=== PATIENT | male | born 1950 | race Caucasian/White ===

== ENCOUNTER 2019-04-20 19:53 | Inpatient (IN) | payer MEDICARE ==
[~2019-04-20] VITALS: Ht 172.7 cm; Wt 107.5 kg
[~2019-04-20 19:53] MED LIST: CIPR500T3 PO; FENO134C PO; HYDR-3713 PO; METF500T13 PO; METO1TAB7 PO; PLAV1TAB2 PO; PRAV40TA2 PO
[2019-04-20 22:56] VITALS: BP 136/79
[2019-04-20] MEDS ORDERED: CLOP75TA2 PO (23:38)
[2019-04-20] MEDS ORDERED: METO1TAB7 PO (23:38)
[2019-04-20] MEDS ORDERED: PRAV40TA2 PO (23:38)
[2019-04-20] MEDS ORDERED: FENO135C6 PO (23:38)
[2019-04-20] MEDS ORDERED: METF-839 PO (23:38)
[2019-04-20] MEDS ORDERED: NITR4TASL SL (23:38)
[2019-04-20] MEDS ORDERED: ALFU10TA3 PO (23:38)
[2019-04-21] MEDS ORDERED: ASPI-161 PO (00:11)
[2019-04-21] MEDS ORDERED: ACETAMINOPHEN TAB 650MG DOSE (2X325MG) PO PRN (00:45)
[2019-04-21] MEDS ORDERED: GLUCAGON FOR INJ 1 MG VIAL (J1610) SC PRN (00:45)
[2019-04-21] MEDS ORDERED: GLUCOSE 4 GM CHEW TABLET PO PRN (00:45)
[2019-04-21] MEDS ORDERED: DEXTROSE 50% 50 ML SYRINGE IV PRN (00:45)
[2019-04-21] MEDS: NS 1,000 ML IV SCH ×2 (00:47→23:29)
[2019-04-21 00:56] LABS: BASO # 0.1 10^3/uL (0.0-0.2); BASO % 0.4 % (0.0-1.0); EOS # 0.2 10^3/uL (0.0-0.50); EOS % 1.2 % (0.0-3.0); HEMATOCRIT 40.6 % (42.0-52.0); HEMOGLOBIN 13.7 g/dl (13.5-17.5); LYMPH # 1.9 10^3/uL (1.5-4.5); LYMPH % 14.1 % (24.0-44.0); MEAN CORPUSCULAR HEMOGLOBIN 31.3 pg (27.0-33.0); MEAN CORPUSCULAR HGB CONC 33.7 g/dl (32.0-36.5); MEAN CORPUSCULAR VOLUME 92.7 fl (80.0-96.0); MONO # 0.9 10^3/uL (0.0-0.8); NEUTROPHILS # 10.2 10^3/uL (1.8-7.7); NEUTROPHILS % 76.8 % (36.0-66.0); PLATELET COUNT, AUTOMATED 203 10^3/uL (150-450); RED BLOOD COUNT 4.38 10^6/uL (4.30-6.10); WHITE BLOOD COUNT 13.2 10^3/uL (4.0-10.0)
[2019-04-21] MEDS: HumaLOG INSULIN (NovoLOG) PER UNIT SC SCH ×5 (01:10→20:59)
[2019-04-21 01:12] LABS: ALBUMIN 3.2 GM/DL (3.2-5.2); ALT/SGPT 50 U/L (12-78); BILIRUBIN,TOTAL 0.6 MG/DL (0.2-1.0); BLOOD UREA NITROGEN 22 MG/DL (7-18); CARBON DIOXIDE LEVEL 24 MEQ/L (21-32); CHLORIDE LEVEL 107 MEQ/L (98-107); CREATININE FOR GFR 1.23 MG/DL (0.70-1.30); GLOMERULAR FILTRATION RATE > 60.0 (>42); GLUCOSE, FASTING 161 MG/DL (70-100); POTASSIUM SERUM 3.2 MEQ/L (3.5-5.1); SODIUM LEVEL 140 MEQ/L (136-145); TOTAL PROTEIN 7.2 GM/DL (6.4-8.2)
--- NOTE | 2019-04-21 01:34 | HPEPDOC ---
General Date of Admission Apr 20, 2019 at 22:57 Date of Service: Apr 21, 2019 Attending Physician: FAHAD GAO MD Chief Complaint The patient is a 69-year-old male admitted with a reason for visit of Hematuria,Pyelonephritis,Lower Gi Bleed. Source: Patient, RN/MD Exam Limitations: No limitations Timing/Duration: Day(s) Severity: Moderate History of Present Illness Patient is a 69-year-old male, past medical history significant for urethral stones status post lithotripsy, type 2 diabetes mellitus, nicotine dependence, presenting to [facility] on account of bloody diarrhea and dysuria for 3 days. Patient described the abdominal pain as colicky, sharp, constant, located to lower abdomen and associated with diarrhea. Patient denied any chills, fever, chest pain, shortness of breath. At that facility. He had a CT abdomen and pelvis without contrast which showed 5mm stones in distal ureter just above the UVJ and a 4mm stone into the bladder. A distended bladder, calculated to 878ml volume, heavily calcified prostate with old inflammatory disease, presacral space fluid and edema, left hydroureter without stones in ureter or collecting system. Patient received one dose Cipro and ceftriaxone in the ED at [place]. Specialist input was sought with urology, who felt the patient might have GI bleed. In addition to prostate abscess and recommended transfer to this facility for upper endoscopy, colonoscopy, GI consult and urology consult for cystoscopy. Home Medications Scheduled Alfuzosin HCl (Alfuzosin HCl ER) 10 Mg Tab.er.24h, 10 MG PO DAILY, (Reported) Aspirin (Aspirin EC) 81 Mg Tablet.dr, 81 MG PO DAILY, (Reported) LUNCHTIME Clopidogrel Bisulfate (Clopidogrel) 75 Mg Tablet, 75 MG PO DAILY, (Reported) Fenofibric Acid (Choline) (Fenofibric Acid) 135 Mg Capsule.dr, 135 MG PO DAILY, (Reported) Metformin HCl (Metformin HCl) 500 Mg Tablet, 1,000 MG PO BID, (Reported) Metoprolol Succinate (Metoprolol Succinate) 50 Mg Tab.er.24h, 25 MG PO QHS, (Reported) Pravastatin Sodium (Pravastatin Sodium) 40 Mg Tablet, 40 MG PO QHS, (Reported) Scheduled PRN Nitroglycerin (Nitrostat) 0.4 Mg Tab.subl, 0.4 MG SL NITRO PRN for CHEST PAIN, (Reported) Allergies Coded Allergies: No Known Allergies (Unverified , 03/07/16) Past Medical History Medical History Type 2 diabetes mellitus Obesity Hypertension Hyperlipidemia CAD status post stenting CVA Nicotine dependence Nephrolithiasis Surgical History Lithotripsy Family History Father: Hyperlipidemia, cancer Mother: Glaucoma Social History Smokes 2 packs of cigarettes per week, denies alcohol or polysubstance abuse A-FIB/CHADSVASC A-FIB History Current/History of A-Fib/PAF?: No Current PO Anticoag Therapy: No Review of Systems Other systems A 10 point pertinent review of systems was completed, negative except as stated in the history of presenting illness. Physical Examination Telemetry: Positive: Sinus (ST-T wave changes suggestive of underlying ischemia) Other physical findings GENERAL: NAD SKIN : Warm, dry intact HEENT: Atraumatic, normocephalic, PERRL, moist mucous membrane CARDIOVASCULAR: Regular rate and rhythm, S1S2, no JVD, no edema, distal pulses + and palpable RESP: CTAB, no accessory muscle use noted ABDOMEN: BS+ non distended non tender MS: no joint deformities NEURO: Alert and oriented x 3, CN2-12 grossly intact PSYCH: no anxiety or agitation, appropriate mood and affect. Vital Signs .. Laboratory Data Labs 24H Laboratory Tests 2 04/21/19 00:39: CBC/BMP Assessment/Plan Acute Pyelonephritis -continue ceftriaxone -will need to consult urology in the am for obstructing stone -NS at 85cc/hour -UA with culture for targeted therapy -follow findings and adjust abx therapy as indicated Prostatic Abscess -possibly seen on CT imaging -Urology will need to be consulted in the am Acute GI bleed -With patient reporting 5-6 bowel movements with diarrhea in 1 day -GI panel now -Patient was treated with Cipro at another facility -We'll continue Cipro and add metronidazole -Will need to consult gastroenterology for evaluation and input in the am -Keep on clear liquid diet at this time -Continuous IV fluids at 80 mL per hour T2DM -Finger stick checks prior to meals and at bedtime -Coverage per sliding scale protocol -Hold metformin during hospitalization Hypertension -Essential, benign -Blood pressure monitoring with target systolic blood pressure less than 140 Nicotine Dependence -has been counselled Obesity -BMI36 -calorie controlled diet when diet is resumed DVT prophylaxis -Antiembolic stockings Plan / VTE VTE Prophylaxis Ordered?: Yes OTUBELU,ADAORA C. GASOLINE TRACTOR OPERATOR Apr 21, 2019 01:34
[2019-04-21 02:00] VITALS: BP 111/62
[2019-04-21] MEDS: metroNIDAZOLE 500 MG in IV 1 EA IV SCH ×3 (03:00→18:44)
[2019-04-21] MEDS: METOPROLOL SUCC (TopROL XL) 50MG **XL** TAB PO SCH ×2 (03:38→21:03)
[2019-04-21] MEDS: CIPROFLOXACIN 400 MG in IV 1 EA IV SCH ×2 (05:30→17:44)
[2019-04-21 06:00] VITALS: BP 114/55
[2019-04-21] MEDS: FENOFIBRATE 145 MG TAB (TRICOR) PO SCH (08:49)
[2019-04-21 10:00] VITALS: BP 117/71
--- NOTE | 2019-04-21 12:28 | IPNPDOC ---
Text Note Date of Service The patient was seen on 04/21/19. NOTE S: Patient transferred from [facility] because of hematochezia, prostate abscess, kidney stones and hydroureter. Patient states on 04/14 had problems urinating. Progressively worsened and on tuesday 04/17 patient had dysuria, oliguria. Yesterday he developed hematochezia, diarrhea stools and went to [facility]. had CT ABD/PEL with contrast and transferred to [facility] for GI and consultation. Patient states still having hematochezia (1-2 bloody and sometimes maroon diarrhea stools today). no nausea, no fever, no abdomen pain. Still with back pain, dysuria and oliguria O: Vitals as below General: pleasant, obese, NAD, AAOx3 HRRR LCTA no W/R/R, no CVA tenderness Abdomen: soft NT ND NABS A/P: 1) Acute Pyelonephritis with hydroureter - started on ceftriaxone, BC/UC pending from [facility] . repeat UA and culture here. IVF. Will change IV antibiotics to levaquin/flagyl to cover GI and sources 2) Abscess of prostate - consult urology and case discussed. NPO until seen by urology; blood and urine culture pending. continue levaquin/flagyl 3) Acute GI bleed without anemia - probable lower - painless. Consult GI -Dr Dela Cruz (may need outpatient EGD/Colonoscopy). IVF. serial H/H (stable). PPI, continue cipro/flagyl. no mention of diveritculitis on available reports (unable to visualize films). stool studies ordered 4) Diabetes - not on terminal make up operator insulin, without hyperglycemia/hypoglycemia. hold metformen [address] (04/20/19). SSI. ACHS accuchecks 5) HTN benign essential - continue home regimen/metoprolol; hold plavix and ASA due to bleeding 6) tobacco dependence - declines nicotene patch. smokes 2 pack/week 7) Obesity with BMI 36 CODE STATUS: FULL DVT PROPHYLAXIS: SCD/NBA VS,Fishbone, I+O VS, Fishbone, I+O Laboratory Tests 04/21/19 00:39 Red Blood Count 4.38, Mean Corpuscular Volume 92.7, Mean Corpuscular Hemoglobin 31.3, Mean Corpuscular Hemoglobin Concent 33.7, Red Cell Distribution Width 12.6, Neutrophils (%) (Auto) 76.8 H, Lymphocytes (%) (Auto) 14.1 L, Monocytes (%) (Auto) 7.0 H, Eosinophils (%) (Auto) 1.2, Basophils (%) (Auto) 0.4, Neutrophils # (Auto) 10.2 H, Lymphocytes # (Auto) 1.9, Monocytes # (Auto) 0.9 H, Eosinophils # (Auto) 0.2, Basophils # (Auto) 0.1, Calcium Level 9.0, Aspartate Amino Transf (AST/SGOT) 48 H, Alanine Aminotransferase (ALT/SGPT) 50, Alkaline Phosphatase 47, Total Bilirubin 0.6, Total Protein 7.2, Albumin 3.2 Vital Signs Date Time Temp Pulse Resp B/P (MAP) Pulse Ox O2 Delivery O2 Flow Rate FiO2 04/21/19 10:00 98.5 67 16 117/71 (18) 94 I&O- Last 24 Hours up to 6 AM 04/21/19 06:00 Intake Total 750 ml Output Total 0 ml Balance 750 ml SIMIN HOLMAN DO Apr 21, 2019 11:22
[2019-04-21] MEDS: KCL 10MEQ/100ML SWI (KRUN) 10 MEQ in IV 1 EA IV SCH ×3 (12:39→16:15)
[2019-04-21] MEDS: PANTOPRAZOLE 40MG TAB (PROTONIX) PO SCH (12:39)
[2019-04-21 14:00] VITALS: BP 121/75
[2019-04-21] MEDS ORDERED: cefTRIAXone SOD 2 GM in D5W MINI-BAG PLUS 50 ML IV SCH (14:00)
--- NOTE | 2019-04-21 17:07 | SMCUROLCON ---
Urology Consultation General Date of Consultation 04/21/19 Reason For Consultation This patient is seen for Hematuria,Pyelonephritis,Lower Gi Bleed. History of Present Illness This patient is a 69-year-old male who was admitted yesterday to the [facility]. He reports that his current medical symptoms started approximately 1 week ago. He reports that the symptoms started with some very mild dysuria. He reports that over the following days that dysuria became a bit more intense in that also started having bloody diarrhea. He reports that over the following days his urine output decreased but that he was not really having any obstructive urinary symptoms. He had worsening bloody stools and eventually presented to [facility]. A plain CT scan was done there. Although we do not have any formal interpretation of this study it has been reported that it showed left ureteral stones, left ureteral dilation, a bladder stone, and a prostate abscess. The patient does have a CD of the images. The patient reports that he has not had any abdominal or flank pain any time recently. He also reports that he underwent a digital rectal exam yesterday and that he had no abnormal or surprising tenderness in his rectum or prostate area. He reports that his dysuria has been less bothersome in the last day or two although he has not been urinating very much. He does have a history of urolithiasis and underwent at least one endoscopic stone procedure in the past. He reports that this was sometime ago and that he does have a urologist that he follows with as an outpatient. He denies any other genitourinary complaints at this time. Past Medical History Medical History Type 2 diabetes mellitus, Obesity, Hypertension, Hyperlipidemia, CAD status post stenting, CVA, h/o urolithiasis Surgical Hstory h/o endoscopic stone surgery Family History Significant Family History: No pertinent family hx Social History * Smoker: current smoker Alcohol: Denies Drugs: denies Medications Current Medications Current Medications Acetaminophen (Tylenol Tab) 650 mg Q4H PRN PO PAIN OR FEVER; Start 04/21/19 at 00:45 Ceftriaxone Sodium 2 gm/ Dextrose 50 ml @ 100 mls/hr Q24H IV ; Start 04/21/19 at 14:00; Stop 04/21/19 at 14:00; Status DC Ciprofloxacin 400 mg/IV Miscellaneous Supplies 200 ml @ 200 mls/hr Q12H IV Last administered on 04/21/19at 05:30; Start 04/21/19 at 06:00 Dextrose (Dextrose 50%) 25 ml ASDIRECTED PRN IV SEE LABEL COMMENTS; Start 04/21/19 at 00:45 Fenofibrate (Tricor) 145 mg DAILY PO Last administered on 04/21/19at 08:49; Start 04/21/19 at 09:00 Glucagon (Glucagon) 1 mg ASDIRECTED PRN SC SEE LABEL COMMENTS; Start 04/21/19 at 00:45 Glucose (Glucose) 16 GM ASDIRECTED PRN PO SEE LABEL COMMENTS; Start 04/21/19 at 00:45 Home Med (Med Rec Complete!) ASDIRECTED XX ; Start 04/21/19 at 00:15; Stop 04/21/19 at 00:15; Status DC Insulin Human Lispro (HumaLOG INSULIN) SEE PROTOCOL TABLE AC SC ; Start 04/21/19 at 07:30 Insulin Human Lispro (HumaLOG INSULIN) SEE PROTOCOL TABLE QHS SC ; Start 04/20/19 at 21:00 Metoprolol Succinate (TopROL XL) 25 mg QHS PO Last administered on 04/21/19at 03:38; Start 04/20/19 at 21:00 Metronidazole 500 mg/IV Miscellaneous Supplies 100 ml @ 100 mls/hr Q8H IV Last administered on 04/21/19at 11:10; Start 04/21/19 at 03:00 Pantoprazole Sodium (Protonix) 40 mg DAILY PO Last administered on 04/21/19at 12:39; Start 04/21/19 at 09:00 Potassium Chloride 10 meq/ IV Miscellaneous Supplies 100 ml @ 100 mls/hr Q1H IV Last administered on 04/21/19at 16:15; Start 04/21/19 at 13:00; Stop 04/21/19 at 15:59; Status DC Pravastatin Sodium (Pravachol) 40 mg QHS PO ; Start 04/21/19 at 21:00 Sodium Chloride 1,000 ml @ 75 mls/hr [id number] IV Last administered on 04/21/19at 00:47; Start 04/21/19 at 00:30 Allergies Allergies: Coded Allergies: No Known Allergies (Unverified , 03/07/16) Review of Systems Gastrointestinal: Reports: Diarrhea, Hematochezia Genitourinary: Reports: Dysuria; Denies: Retention Physical Examination General Exam: Cooperative EYE EXAM: Conjunctiva & lids normal, EOMI ENT EXAM: Atraumatic, Nares Patent Neck Exam: Supple Chest Exam: Normal air movement Heart Exam: Rate Normal Abdomen Exam: Soft, Other (No CVAT); No: Tenderness Skin Exam: Nl turgor and temperature Neuro Exam: Normal Speech Psych Exam: Mental status NL, Mood NL Vital Signs/I&O Vital Signs Date Time Temp Pulse Resp B/P (MAP) Pulse Ox O2 Delivery O2 Flow Rate FiO2 04/21/19 14:00 97.9 68 17 121/75 (90) 94 I&O- Last 24 Hours up to 6 AM 04/21/19 06:00 Intake Total 750 ml Output Total 0 ml Balance 750 ml Laboratory Data 24H Labs Laboratory Tests 2 04/21/19 00:39: Immature Granulocyte % (Auto) 0.5, White Blood Count 13.2H, Red Blood Count 4.38, Hemoglobin 13.7, Hematocrit 40.6L, Mean Corpuscular Volume 92.7, Mean Corpuscular Hemoglobin 31.3, Mean Corpuscular Hemoglobin Concent 33.7, Red Cell Distribution Width 12.6, Platelet Count 203, Neutrophils (%) (Auto) 76.8H, Lymphocytes (%) (Auto) 14.1L, Monocytes (%) (Auto) 7.0H, Eosinophils (%) (Auto) 1.2, Basophils (%) (Auto) 0.4, Neutrophils # (Auto) 10.2H, Lymphocytes # (Auto) 1.9, Monocytes # (Auto) 0.9H, Eosinophils # (Auto) 0.2, Basophils # (Auto) 0.1, Nucleated Red Blood Cells % (auto) 0.0, Anion Gap 9, Glomerular Filtration Rate > 60.0, Blood Urea Nitrogen 22H, Creatinine 1.23, Sodium Level 140, Potassium Level 3.2L, Chloride Level 107, Carbon Dioxide Level 24, Calcium Level 9.0, Aspartate Amino Transf (AST/SGOT) 48H, Alanine Aminotransferase (ALT/SGPT) 50, Alkaline Phosphatase 47, Total Bilirubin 0.6, Total Protein 7.2, Albumin 3.2, Albumin/Globulin Ratio 0.80L 04/21/19 01:07: Bedside Glucose (Misc Panel) 157H 04/21/19 02:40: Urine Color YELLOW, Urine Appearance CLOUDYH, Urine pH 5.0, Urine Specific [place] 1.030, Urine Protein 1+H, Urine Glucose (UA) NEGATIVE, Urine Ketones NEGATIVE, Urine Blood 3+H, Urine Nitrite NEGATIVE, Urine Bilirubin NEGATIVE, Urine Urobilinogen 2.0H, Urine Leukocyte Esterase 3+H, Urine WBC (Auto) TNTCH, Urine RBC (Auto) 29H, Urine Hyaline Casts (Auto) 0, Urine Bacteria (Auto) NEGATIVE, Urine Squamous Epithelial Cells 0, Urine Transitional Epithelial Cells 1, Urine Sperm (Auto) 04/21/19 06:24: Bedside Glucose (Misc Panel) 144H 04/21/19 11:42: Bedside Glucose (Misc Panel) 119H CBC/BMP Laboratory Tests 04/21/19 00:39 Red Blood Count 4.38, Mean Corpuscular Volume 92.7, Mean Corpuscular Hemoglobin 31.3, Mean Corpuscular Hemoglobin Concent 33.7, Red Cell Distribution Width 12.6, Neutrophils (%) (Auto) 76.8 H, Lymphocytes (%) (Auto) 14.1 L, Monocytes (%) (Auto) 7.0 H, Eosinophils (%) (Auto) 1.2, Basophils (%) (Auto) 0.4, Neutrophils # (Auto) 10.2 H, Lymphocytes # (Auto) 1.9, Monocytes # (Auto) 0.9 H, Eosinophils # (Auto) 0.2, Basophils # (Auto) 0.1, Calcium Level 9.0, Aspartate Amino Transf (AST/SGOT) 48 H, Alanine Aminotransferase (ALT/SGPT) 50, Alkaline Phosphatase 47, Total Bilirubin 0.6, Total Protein 7.2, Albumin 3.2 Microbiology Microbiology 04/21/19 Blood Culture, Received Pending 04/21/19 Blood Culture, Received Pending 04/21/19 Gastrointestinal Tract Panel (PCR) - Final, Complete 04/21/19 Urine Culture, Received Pending Assessment Urinary tract infection, possible pyelonephritis; no evidence of any urolithiasis, hydronephrosis or hydroureter, or prostate abscess Plan The images on the CD were of a CT of the abdomen and pelvis without contrast that was performed about [address] [facility]. These images were reviewed and did not demonstrate any stones in either kidney or ureter, or any stones in the bladder. In addition there was no hydroureter or hydronephrosis on either side. Although there is bilateral soft tissue/fluid dense structures just superior and posterior to the prostate these likely represent a dilated seminal vesicles rather than a prostate abscess. The prostate itself appears significantly calcified but does not appear to have any abscesses. Further evidence against a prostate abscess is the fact that he had no tenderness on digital rectal exam yesterday. #1. Recommend ongoing antibiotic treatment for urinary tract infection, possible pyelonephritis. #2. Recommend submitting the CD from [facility] to the [facility] radiologist for internal interpretation. Please note the CD is in the inside pocket of the patient's chart. If [facility] radiology thinks that there is evidence of a prostate abscess then contact the urology service. #3 recommend that the patient continue regular follow-up with his normal urologist as an outpatient. RATNA DIAZ MD Apr 21, 2019 17:07
[2019-04-21 18:00] VITALS: BP 120/72
--- NOTE | 2019-04-21 19:01 | ECGEPIP ---
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 Left ventricular hypertrophy with repolarization abnormalities Small inferior Q waves; rule out prior injury. No prior tracing for comparison. Clincal correlation advised Electronically Signed on 04-21-2019 19:00:55 EDT by Thomas Clement
[2019-04-21] MEDS: PRAVASTATIN 20 MG TAB PO SCH (21:03)
[2019-04-21 22:00] VITALS: BP 160/76
[2019-04-22 02:00] VITALS: BP 123/72
[2019-04-22] MEDS: metroNIDAZOLE 500 MG in IV 1 EA IV SCH ×3 (02:42→19:27)
[2019-04-22] MEDS: NS 1,000 ML IV SCH ×2 (03:10→15:17)
[2019-04-22] MEDS: CIPROFLOXACIN 400 MG in IV 1 EA IV SCH ×2 (05:24→18:01)
[2019-04-22 06:00] VITALS: BP 125/67
[2019-04-22 06:52] LABS: HEMATOCRIT 38.6 % (42.0-52.0); HEMOGLOBIN 12.6 g/dl (13.5-17.5); MEAN CORPUSCULAR HEMOGLOBIN 30.7 pg (27.0-33.0); MEAN CORPUSCULAR HGB CONC 32.6 g/dl (32.0-36.5); MEAN CORPUSCULAR VOLUME 93.9 fl (80.0-96.0); PLATELET COUNT, AUTOMATED 194 10^3/uL (150-450); RED BLOOD COUNT 4.11 10^6/uL (4.30-6.10); WHITE BLOOD COUNT 8.3 10^3/uL (4.0-10.0)
[2019-04-22 07:17] LABS: ALBUMIN 2.8 GM/DL (3.2-5.2); ALT/SGPT 43 U/L (12-78); BILIRUBIN,TOTAL 0.4 MG/DL (0.2-1.0); BLOOD UREA NITROGEN 15 MG/DL (7-18); CALCIUM LEVEL 8.3 MG/DL (8.8-10.2); CARBON DIOXIDE LEVEL 24 MEQ/L (21-32); CHLORIDE LEVEL 111 MEQ/L (98-107); CREATININE FOR GFR 1.15 MG/DL (0.70-1.30); GLOMERULAR FILTRATION RATE > 60.0 (>42); GLUCOSE, FASTING 140 MG/DL (70-100); POTASSIUM SERUM 3.4 MEQ/L (3.5-5.1); SODIUM LEVEL 142 MEQ/L (136-145); TOTAL PROTEIN 6.2 GM/DL (6.4-8.2)
[2019-04-22] MEDS: HumaLOG INSULIN (NovoLOG) PER UNIT SC SCH ×4 (07:30→20:55)
[2019-04-22] MEDS: PANTOPRAZOLE 40MG TAB (PROTONIX) PO SCH (08:04)
[2019-04-22] MEDS: FENOFIBRATE 145 MG TAB (TRICOR) PO SCH (08:04)
[2019-04-22] MEDS ORDERED: POTASSIUM CHLORIDE 10 MEQ SR TABLET PO ONE (08:15)
[2019-04-22 10:00] VITALS: BP 118/77
[2019-04-22] MEDS ORDERED: GOLYTELY SOLN 4000 ML BTL PO ONE (11:30)
[2019-04-22 14:00] VITALS: BP 106/53
[2019-04-22] MEDS ORDERED: BISACODYL 5 MG TAB PO ONE (16:00)
--- NOTE | 2019-04-22 19:46 | CR.PDOC ---
General Date of Consultation: Apr 22, 2019 Referring Provider: SIMIN ENGEL DO Attending Physician: CHEPE GRIFFIN MD Consultation Primary physician/ hospitalist: Dr. Engel Reason for consult: Hematochezia HPI: 69 year old Male patient with PMH of HTN, DM-2, HLD, nephrolithiasis and S/P lithotripsy ( following with urologist), was admitted for hematochezia and dysuria for 3 days. GI consulted for hematochezia. Patient initially presented to [facility] for symptoms of acute onset bloody diarrhea and pain with urination for 3 days. Patient described the abdominal pain as colicky, sharp, constant, located in lower abdomen and associated with diarrheal bowel movements. Patient denied any chills, fever, chest pain, shortness of breath. Patient was referred to [facility] for specialist evaluation. Patient on examination at bedside reported still having blood in stools while in hospital without any abdominal pain except pain with micturition. Patient was evaluated by urology in [facility], and no acute intervention planned at this time. Pertinent negative GI symptoms: Patient denies fever, sick contacts, recent travel, nausea, vomiting, loss of appetite, early satiety or unintentional weight loss. No history of hematemesis, melena. OFF note: As per medical records -- At [facility], patient had a CT abdomen and pelvis without contrast which showed 5mm stones in distal ureter just above the UVJ and a 4mm stone into the bladder. A distended bladder, calculated to 878ml volume, heavily calcified prostate with old inflammatory disease, presacral space fluid and edema, left hydroureter without stones in ureter or collecting system. Patient received one dose Cipro and ceftriaxone in the ED at [place]. Review of Systems: GI: as stated above CVS: No chest pain, No palpitations, No leg swelling. 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 Skin: No rash : as above. ENT: No ear discharge/ pain, No dysphagia. Eyes: No photophobia. Jaundice Home medications: reviewed. Antithrombotic agents - no Medical h/o: As above. Surgical h/o: None on abdomen. Social h/o: Alcohol Denies , smoking 2 packs /week , IVDA/ drugs Denies . Family h/o of GI cancers - None Prior Endoscopies: None as per patient Prior GI evaluations: None in [facility]. Exam: Vitals: reviewed General: Alert and oriented x 3, not in distress HEENT: NO pallor, no icterus. Normal oropharynx, NO cervical lymph nodes. Chest: symmetric with bilateral clear air entry, CVS: S1, S2 heard, normal, no murmurs . Abdomen: non-distended, obese, soft, non-tender, no palpable masses, normal bowel sounds heard. Rectal exam: Patient refused / Deferred at this time in view of scheduled colonoscopy. Extremities: no pedal edema, pulses palpable. SEMICONDUCTOR PROCESSING TECHNICIAN: no focal motor or sensory deficits. Moves all extremities Skin: no rash. Labs: reviewed -- Stable H/H with slight drop from baseline. Impression: - Acute onset rectal bleeding, large amounts as per patient with lower abdominal pain ( which is likely related to his bladder stones), with no prior Colonoscopy -- DDx-- Diverticular bleeding vs AVMs vs Polyps vs Ischemic colitis vs hemorrhoids. Recommendations: - Patient educated about the test results, possible differential diagnoses and All questions answered. - Clear liquid diet until tomorrow 6 AM. - Avoid NSAIDs. - Will schedule for Colonoscopy tomorrow after bowel prep. - The procedure, indications, risks (bleeding, perforation, infection, hypotension, respiratory depression, allergy, need for endotracheal intubation, surgery, colostomy, cardiac arrest, even ), benefits, limitations (e.g., missing a lesion), and all other alternatives (including no intervention) were explained to the patient who understood and agreed for the procedure. - Golytely 4 liters to be completed by 6 AM tomorrow. - Dulcolax 20 mg at 4PM. - NPO after 6 AM tomorrow for the procedure. - Please follow procedure note for post procedure recommendations Plan of care discussed with patient and primary team. Patient verbalized understanding and agreed with the plan. Laboratory Data CBC/BMP Laboratory Tests 04/22/19 06:19 Red Blood Count 4.11 L, Mean Corpuscular Volume 93.9, Mean Corpuscular Hemoglobin 30.7, Mean Corpuscular Hemoglobin Concent 32.6, Red Cell Distribution Width 12.6, Calcium Level 8.3 L, Aspartate Amino Transf (AST/SGOT) 34, Alanine Aminotransferase (ALT/SGPT) 43, Alkaline Phosphatase 39 L, Total Bilirubin 0.4, Total Protein 6.2 L, Albumin 2.8 L 04/22/19 17:48 Allergies Coded Allergies: No Known Allergies (Unverified , 03/07/16) Home Medications Scheduled Alfuzosin HCl (Alfuzosin HCl ER) 10 Mg Tab.er.24h, 10 MG PO DAILY, (Reported) Aspirin (Aspirin EC) 81 Mg Tablet.dr, 81 MG PO DAILY, (Reported) LUNCHTIME Clopidogrel Bisulfate (Clopidogrel) 75 Mg Tablet, 75 MG PO DAILY, (Reported) Fenofibric Acid (Choline) (Fenofibric Acid) 135 Mg Capsule.dr, 135 MG PO DAILY, (Reported) Metformin HCl (Metformin HCl) 500 Mg Tablet, 1,000 MG PO BID, (Reported) Metoprolol Succinate (Metoprolol Succinate) 50 Mg Tab.er.24h, 25 MG PO QHS, (Reported) Pravastatin Sodium (Pravastatin Sodium) 40 Mg Tablet, 40 MG PO QHS, (Reported) Scheduled PRN Nitroglycerin (Nitrostat) 0.4 Mg Tab.subl, 0.4 MG SL NITRO PRN for CHEST PAIN, (Reported) CHEPE GRIFFIN MD Apr 22, 2019 19:17
--- NOTE | 2019-04-22 20:42 | IPNPDOC ---
Text Note Date of Service The patient was seen on 04/22/19. NOTE S: patient ambulating in room. states feels better. still with diarrhea and h as started medication for colonoscopy/EGD tomorrow. States no dysuria. O: Vitals as below HRRR LCTA Abdomen soft obese distended, NABS A/P: 1) Acute Pyelonephritis with hydroureter - started on ceftriaxone, BC/UC pending from [facility] . repeat UA and culture pending; IVF. Will change IV antibiotics to levaquin/flagyl to cover GI and sources; 2) Abscess of prostate - consult urology and case discussed THIS IS NOT ABSCESS and radiology CD sent for overread. 3) Acute GI bleed without anemia - probable lower - painless. plan for colonoscopy/EGD tomorrow 4) Diabetes - not on long term care social worker insulin, without hyperglycemia/hypoglycemia. hold metformen [address] (04/20/19). SSI. ACHS accuchecks 5) HTN benign essential - continue home regimen/metoprolol; hold plavix and ASA due to bleeding 6) tobacco dependence - declines nicotene patch. smokes 2 pack/week 7) Obesity with BMI 36 VS,Fishbone, I+O VS, Fishbone, I+O Laboratory Tests 04/21/19 17:51 04/22/19 06:19 Red Blood Count 4.11 L, Mean Corpuscular Volume 93.9, Mean Corpuscular Hemoglobin 30.7, Mean Corpuscular Hemoglobin Concent 32.6, Red Cell Distribution Width 12.6, Calcium Level 8.3 L, Aspartate Amino Transf (AST/SGOT) 34, Alanine Aminotransferase (ALT/SGPT) 43, Alkaline Phosphatase 39 L, Total Bilirubin 0.4, Total Protein 6.2 L, Albumin 2.8 L Vital Signs Date Time Temp Pulse Resp B/P (MAP) Pulse Ox O2 Delivery O2 Flow Rate FiO2 04/22/19 10:00 97.3 64 20 118/77 (91) 96 I&O- Last 24 Hours up to 6 AM 04/22/19 06:00 Intake Total 2010 ml Output Total 1400 ml Balance 610 ml SIMIN HOLMAN DO Apr 22, 2019 13:46
[2019-04-22] MEDS: PRAVASTATIN 20 MG TAB PO SCH (20:56)
[2019-04-22 20:57] VITALS: BP 131/79
[2019-04-22] MEDS: METOPROLOL SUCC (TopROL XL) 50MG **XL** TAB PO SCH (20:57)
[2019-04-22 22:00] VITALS: BP 131/79
[2019-04-23] MEDS: metroNIDAZOLE 500 MG in IV 1 EA IV SCH (02:46)
[2019-04-23] MEDS: CIPROFLOXACIN 400 MG in IV 1 EA IV SCH (05:05)
[2019-04-23 06:00] VITALS: BP 130/82
[2019-04-23] MEDS: NS 1,000 ML IV SCH (06:22)
[2019-04-23 06:56] LABS: BLOOD UREA NITROGEN 8 MG/DL (7-18); CALCIUM LEVEL 8.3 MG/DL (8.8-10.2); CARBON DIOXIDE LEVEL 24 MEQ/L (21-32); CHLORIDE LEVEL 113 MEQ/L (98-107); CREATININE FOR GFR 0.95 MG/DL (0.70-1.30); GLOMERULAR FILTRATION RATE > 60.0 (>42); GLUCOSE, FASTING 136 MG/DL (70-100); POTASSIUM SERUM 3.4 MEQ/L (3.5-5.1); SODIUM LEVEL 143 MEQ/L (136-145)
[2019-04-23] MEDS: HumaLOG INSULIN (NovoLOG) PER UNIT SC SCH ×2 (07:30→12:00)
[2019-04-23] MEDS: FENOFIBRATE 145 MG TAB (TRICOR) PO SCH (08:14)
[2019-04-23] MEDS: PANTOPRAZOLE 40MG TAB (PROTONIX) PO SCH (08:14)
[2019-04-23] MEDS ORDERED: LIDOCAINE 2% INJ 100 MG/5 ML SDV (FOR ANES.) As Ordered ONE (11:35)
[2019-04-23] MEDS ORDERED: propofoL 200 MG/20 ML VIAL As Ordered ONE (11:35)
[2019-04-23 11:58] VITALS: BP 125/82
--- NOTE | 2019-04-23 12:05 | ROOR ---
Patient Name: Perico Gabriel Procedure Date: 04/23/2019 10:28 AM Date of : 1950 Age: 69 Gender: Male Note Status: Finalized Procedure: Colonoscopy Indications: Hematochezia Providers: Jesus Dela Cruz MD Referring MD: Sarah Engel Do Requesting Provider: Medicines: Monitored Anesthesia Care Complications: No immediate complications. Procedure: Pre-Anesthesia Assessment: - Prior to the procedure, a History and Physical was performed, and patient medications and allergies were reviewed. The patient is competent. The risks and benefits of the procedure and the sedation options and risks were discussed with the patient. All questions were answered and informed consent was obtained. Patient identification and proposed procedure were verified by the physician, the nurse and the anesthesiologist in the procedure room. Mental Status Examination: alert and oriented. Airway Examination: normal oropharyngeal airway and neck mobility. Respiratory Examination: clear to auscultation. CV Examination: normal. Prophylactic Antibiotics: The patient does not require prophylactic antibiotics. Prior Anticoagulants: The patient has taken no previous anticoagulant or antiplatelet agents. ASA Grade Assessment: II - A patient with mild systemic disease. After reviewing the risks and benefits, the patient was deemed in satisfactory condition to undergo the procedure. The anesthesia plan was to use monitored anesthesia care (MAC). Immediately prior to administration of medications, the patient was re-assessed for adequacy to receive sedatives. The heart rate, respiratory rate, oxygen saturations, blood pressure, adequacy of pulmonary ventilation, and response to care were monitored throughout the procedure. The physical status of the patient was re-assessed after the procedure. The Colonoscope was introduced through the anus and advanced to the terminal ileum, with identification of the appendiceal orifice and IC valve. The colonoscopy was performed without difficulty. The patient tolerated the procedure well. The quality of the bowel preparation was good. The ileocecal valve, appendiceal orifice, and rectum were photographed. Scope insertion time was 3 minutes. Scope withdrawal time was 8 minutes. The total duration of the procedure was 12 minutes. Findings: The perianal and digital rectal examinations were normal. The terminal ileum appeared normal. Eight sessile polyps were found in the recto-sigmoid colon, transverse colon and ascending colon. The polyps were 6 to 10 mm in size. These polyps were removed with a cold snare. Resection and retrieval were complete. Verification of patient identification for the specimen was done by the physician and nurse using the patient's name, date and medical record number. Estimated blood loss was minimal. Multiple small and large-mouthed diverticula were found from sigmoid to ascending colon. There was no evidence of diverticular bleeding. Non-bleeding external and internal hemorrhoids were found during retroflexion. The hemorrhoids were medium-sized. Impression: - The examined portion of the ileum was normal. - Eight 6 to 10 mm polyps at the recto-sigmoid colon, in the transverse colon and in the ascending colon, removed with a cold snare. Resected and retrieved. - Moderate diverticulosis from sigmoid to ascending colon. There was no evidence of diverticular bleeding. - Non-bleeding external and internal hemorrhoids. Recommendation: - Patient has a contact number available for emergencies. The signs and symptoms of potential delayed complications were discussed with the patient. Return to normal activities tomorrow. Written discharge instructions were provided to the patient. - Resume previous diet. - Continue present medications. - Await pathology results. - Repeat colonoscopy in 3 years for surveillance based on pathology results. - Telephone GI clinic for pathology results in 2 weeks. - Return to GI clinic in 3 years. - Return to primary care physician. Attending Participation: I personally performed the entire procedure. Jesus Dela Cruz MD Jesus Dela Cruz MD 04/23/2019 12:05:34 PM Electronically signed by Jesus Dela Cruz MD Number of Addenda: 0 Note Initiated On: 04/23/2019 10:28 AM Estimated Blood Loss: Estimated blood loss was minimal.
[2019-04-23] MEDS ORDERED: LEVO500T3 PO (14:18)
--- NOTE | 2019-04-23 15:09 | DS.PDOC ---
Discharge Summary General Date of Admission Apr 21, 2019 at 00:48 Date of Discharge 04/23/19 Attending Physician: SIMIN HOLMAN DO Specialist/Consultants Involve PCP: Riaz Montejo NP; Consultants: Dr Carver (urology), Dr Dela Cruz (GI) Discharge Summary PROCEDURES PERFORMED DURING STAY: 04/23/19 Colonoscopy ADMITTING DIAGNOSES: Acute Pyelonephritis Prostatic Abscess Acute GI bleed T2DM Hypertension-Essential, benign Nicotine Dependence Obesity DISCHARGE DIAGNOSES: 1. Urinary tract infection, possible pyelonephritis; no evidence of any urolithiasis, hydronephrosis or hydroureter, or prostate abscess 2. Diverticulosis with colon polyps 3. Lower GI bleed without anemia due to hemorrhoids, colon polyps and diverticulosis 4. no evidence of any urolithiasis, hydronephrosis or hydroureter, or prostate abscess 5. Diabetes - not on long-term insulin, without hyperglycemia/hypoglcyemia 6. HTN benign essential 7 tobacco dependence 8 obesity wtih BMI 36 COMPLICATIONS/CHIEF COMPLAINT: Hematuria,Pyelonephritis,Lower Gi Bleed. HISTORY OF PRESENT ILLNESS: Patient is a 69-year-old male, past medical history significant for urethral stones status post lithotripsy, type 2 diabetes mellitus, nicotine dependence, presenting to [facility] on account of bloody diarrhea and dysuria for 3 days. Patient described the abdominal pain as colicky, sharp, constant, located to lower abdomen and associated with diarrhea. Patient denied any chills, fever, chest pain, shortness of breath. He was transferred from [facility] to [facility] because of prostate abscess, pylenephritis, kidney stone and GI bleed . See H&P for details. HOSPITAL COURSE: Patient admitted. started on flagyl and cipro antibiotics. GI and consulted. reviewed CT scan and no evidence of any urolithiasis, hydronephrosis or hydroureter, or prostate abscess. CD ROM sent to radiology for over read. His bloody diarrhea improved and he did not have any significant drop in hgb. GI performed colonoscopy and found hemorrhoids, diverticulosis (not itis) and colon polyps (biopsied). patient no longer had lower abdomen pain and tolerated regular diet. Prior to discharge, fax received from [facility] with possible Staph species in 1 bottle drawn on 04/20. Unclear if contaminent. Spoke with [place] [facility] and no identification available until tomorrow afternoon. Discussed with patient and staying in hospital for 24 hours until results available or going home and following up with phone call tomorrow. Discussed the risk/benefit of both options (including if blood culture is positive, then 14 days antibiotic treatment may be needed). Patient demonstrates good verbal understanding and prefers to be discharged home. DISCHARGE MEDICATIONS: Please see below. ALLERGIES: Please see below. PHYSICAL EXAMINATION ON DISCHARGE: VITAL SIGNS: Please see below. General: pleasant, NAD AAOX3 HRRR LCTA Abdomen soft obese NT ND NABS Ext: no edema LABORATORY DATA: Please see below. ACTIVITY: as tolerated DIET: carb consistent DISCHARGE PLAN: discharge home DISCHARGE INSTRUCTIONS: 1. follow up with GI in 2 weeks to review biopsy polyp reports 2. follow up with personal urologist in [place] in 1-2 weeks 3. follow up with PCP in 5-7 days ITEMS TO FOLLOWUP ON ON OUTPATIENT: 1. CD ROM over read from radiology pending 2. final BC report from [place] pending DISCHARGE CONDITION: stable and improved TIME SPENT ON DISCHARGE: 36 minutes. Vital Signs/I&Os Vital Signs Date Time Temp Pulse Resp B/P (MAP) Pulse Ox O2 Delivery O2 Flow Rate FiO2 04/23/19 11:58 78 16 125/82 (96) 94 04/23/19 11:58 98 I&O- Last 24 Hours up to 6 AM 04/23/19 06:00 Intake Total 4900 ml Output Total 850 ml Balance 4050 ml Laboratory Data Labs 24H Laboratory Tests 2 04/22/19 16:56: Bedside Glucose (Misc Panel) 128H 04/22/19 20:44: Bedside Glucose (Misc Panel) 92 04/23/19 06:23: Anion Gap 6L, Glomerular Filtration Rate > 60.0, Blood Urea Nitrogen 8, Creatinine 0.95, Sodium Level 143, Potassium Level 3.4L, Chloride Level 113H, Carbon Dioxide Level 24, Calcium Level 8.3L CBC/BMP Laboratory Tests 04/22/19 17:48 04/23/19 06:23 Calcium Level 8.3 L FSBS Laboratory Tests Test 04/22/19 16:56 04/22/19 20:44 Range/Units Bedside Glucose (Misc Panel) 128 92 83-110 MG/DL Microbiology Microbiology 04/21/19 Blood Culture - Preliminary, Resulted No Growth after 48 hours. All Specime... 04/21/19 Blood Culture - Preliminary, Resulted No Growth after 48 hours. All Specime... 04/21/19 Gastrointestinal Tract Panel (PCR) - Final, Complete 04/21/19 Urine Culture - Final, Complete Discharge Medications Scheduled Alfuzosin HCl (Alfuzosin HCl ER) 10 Mg Tab.er.24h, 10 MG PO DAILY, (Reported) Aspirin (Aspirin EC) 81 Mg Tablet.dr, 81 MG PO DAILY, (Reported) LUNCHTIME Clopidogrel Bisulfate (Clopidogrel) 75 Mg Tablet, 75 MG PO DAILY, (Reported) Fenofibric Acid (Choline) (Fenofibric Acid) 135 Mg Capsule.dr, 135 MG PO DAILY, (Reported) Levofloxacin (Levofloxacin) 500 Mg Tablet, 1 TAB PO DAILY Metformin HCl (Metformin HCl) 500 Mg Tablet, 1,000 MG PO BID, (Reported) Metoprolol Succinate (Metoprolol Succinate) 50 Mg Tab.er.24h, 25 MG PO QHS, ( Reported) Pravastatin Sodium (Pravastatin Sodium) 40 Mg Tablet, 40 MG PO QHS, (Reported) Scheduled PRN Nitroglycerin (Nitrostat) 0.4 Mg Tab.subl, 0.4 MG SL NITRO PRN for CHEST PAIN, (Reported) Allergies Coded Allergies: No Known Allergies (Unverified , 03/07/16) SIMIN HOLMAN DO Apr 23, 2019 14:21
== END 2019-04-23 15:15 | disposition home or self-care (01) | DRG 689 ==
LOC: M MSPAV 22:57 → UNDOADMIN 22:57 → M MSPAV 04-21 00:48
PROVIDERS: ADMIT Internal Medicine; ATTEND Family Medicine
PROC: 0DBK8ZX Excision of Ascending Colon, Via Natural or Artificial Opening Endoscopic, Diagnostic (ICD-10-PCS; 2019-04-23)
PROC: 0DBN8ZX Excision of Sigmoid Colon, Via Natural or Artificial Opening Endoscopic, Diagnostic (ICD-10-PCS; 2019-04-23)
PROC: 0DBL8ZX Excision of Transverse Colon, Via Natural or Artificial Opening Endoscopic, Diagnostic (ICD-10-PCS; principal; 2019-04-23 10:00)
DX: N10 Acute pyelonephritis (principal); K57.31 Diverticulosis of large intestine without perforation or abscess with bleeding; E11.9 Type 2 diabetes mellitus without complications; F17.210 Nicotine dependence, cigarettes, uncomplicated; E66.9 Obesity, unspecified; I10 Essential (primary) hypertension; D12.3 Benign neoplasm of transverse colon; D12.2 Benign neoplasm of ascending colon; K64.4 Residual hemorrhoidal skin tags; K64.8 Other hemorrhoids; D12.5 Benign neoplasm of sigmoid colon; E78.5 Hyperlipidemia, unspecified; I25.10 Atherosclerotic heart disease of native coronary artery without angina pectoris; Z86.73 Personal history of transient ischemic attack (TIA), and cerebral infarction without residual deficits; Z68.36 Body mass index [BMI] 36.0-36.9, adult; Z79.82 Long term (current) use of aspirin; Z79.84 Long term (current) use of oral hypoglycemic drugs; Z79.899 Other long term (current) drug therapy; Z95.5 Presence of coronary angioplasty implant and graft; Z87.442 Personal history of urinary calculi

== ENCOUNTER → 2024-08-01 | Outpatient (CLI) | payer MEDICARE ==
[~2024-08-01] MED LIST changes: +ALFU10TA23 PO; +ASPI-615 PO; +CLOP75TA2 PO; +CLOP75TA99 PO; -FENO134C PO; +FENO134C20 PO; +FENO135C6 PO; +LEVO1TAB39 PO; +METF-839 PO; +NITR4TASL SL; -PLAV1TAB2 PO
== END ==
LOC: M PLARAD 13:11
PROVIDERS: ATTEND Internal Medicine Critical Care Medicine
DX: R91.8 Other nonspecific abnormal finding of lung field (principal)
CPT/HCPCS: 78815; A9552

== ENCOUNTER → 2025-08-18 | Outpatient (CLI) | payer MEDICARE ==
[~2025-08-18] MED LIST changes: +JARD1TAB PO; +METH-1100 PO; +NS (Normal Saline) 0.9% 1,000 ML IV SCH; -PRAV40TA2 PO; +PRAV40TA85 PO
[2025-08-18 12:45] VITALS: TEMP 98.2
[2025-08-18] MEDS: LIDOCAINE 1% MDV 20 ML VIAL IM ONE (14:15)
[2025-08-18] MEDS: MIDAZOLAM INJ 2 MG/2 ML VIAL IV PRN (14:17)
[2025-08-18 15:30] VITALS: BP 109/64
[2025-08-18 15:45] VITALS: O2SAT 97
== END ==
LOC: M IRPRO 12:02
PROVIDERS: ATTEND Internal Medicine Critical Care Medicine
DX: C34.11 Malignant neoplasm of upper lobe, right bronchus or lung (principal); R91.8 Other nonspecific abnormal finding of lung field
CPT/HCPCS: 32408; 88305; 99152; 99153; J2250; J3010

== ENCOUNTER → 2025-09-12 | Outpatient (CLI) | payer MEDICARE ==
[~2025-09-12] MED LIST changes: +ALBU8.5H; +FLUT1BLS8; -NS (Normal Saline) 0.9% 1,000 ML IV SCH
== END ==
LOC: M ONCR 14:15
PROVIDERS: ATTEND General Practice
DX: C34.11 Malignant neoplasm of upper lobe, right bronchus or lung (principal); F17.218 Nicotine dependence, cigarettes, with other nicotine-induced disorders; Z80.1 Family history of malignant neoplasm of trachea, bronchus and lung; Z88.1 Allergy status to other antibiotic agents; Z79.02 Long term (current) use of antithrombotics/antiplatelets; Z79.51 Long term (current) use of inhaled steroids; Z79.84 Long term (current) use of oral hypoglycemic drugs; Z79.899 Other long term (current) drug therapy